=== PATIENT | male | born 1995 | race Caucasian/White ===

== ENCOUNTER 2019-06-19 13:47 | Emergency (ER) | payer OTHER ==
[~2019-06-19] VITALS: Ht 187.9 cm; Wt 80.2 kg
[2019-06-19] MEDS ORDERED: FAMOTIDINE 20MG/2ML IV (PEPCID) IVP ONE (14:00)
[2019-06-19] MEDS ORDERED: methylPREDNISolone 125 MG (Solu-MEDROL) VIAL IVP ONE (14:00)
[2019-06-19] MEDS ORDERED: diphenhydrAMINE 50 MG/ML INJ (BENADRYL) IVP ONE (14:00)
[2019-06-19] MEDS ORDERED: EPINEPHrine INJECTION 1 MG/ML AMP IM ONE (14:15)
--- NOTE | 2019-06-19 14:25 | ED Integumentary General ---
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 Source: patient Exam Limitations: no limitations History of Present Illness Date Seen by Provider: Jun 19, 2019 Time Seen by Provider: 13:55 Initial Comments 24-year-old male patient presents to the emergency department with complaints of hives and throat swelling beginning approximately 30 minutes to one hour prior to arrival. Patient states he was at work when symptoms began. he was outside on a piece of machinery when he noticed the throat itching and noticed a rash starting on the thighs. patient denies any new foods, lotions, soaps, laundry detergents, chemical exposures, medications, etc.... Patient denies any similar history of symptoms. 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.), getting worse Location: generalized Possible Cause: no cause identified Modifying Factors: worse with other (denies using otc meds) Associated Symptoms: No blisters, No change in skin texture, No edema, No fever, No flushing, No headache; hives; No jaundice; malaise; No nasal congestion, No numbness, No pallor, No paresthesia, No petechiae; rash, sore throat; No swelling/mass/lumps, No tingling Allergies and Home Medications Allergies Coded Allergies: No Known Drug Allergies (Unverified , 06/19/19) Home Medications Epinephrine 0.3 Mg/0.3 Ml Auto.injct, 0.3 MG IJ UD PRN for SHORTNESS OF BREATH Prescribed by: STEFFANIE ROSE on 06/19/191745 Famotidine 20 Mg Tablet, 20 MG PO BID Prescribed by: STEFFANIE ROSE on 06/19/191745 Fexofenadine HCl 180 Mg Tablet, 180 MG PO BID Prescribed by: STEFFANIE ROSE on 06/19/191745 Prednisone 20 Mg Tab, 40 MG PO DAILY Prescribed by: STEFFANIE ROSE on 06/19/191745 Patient Home Medication List Home Medication List Reviewed: Yes Review of Systems Review of Systems Constitutional: No chills, No diaphoresis, No dizziness, No fever, No malaise, No weakness EENTM: see HPI, throat pain, throat swelling; No ear discharge, No ear pain, No eye pain, No tearing, No mouth pain, No mouth swelling, No nose congestion Respiratory: No cough, No phlegm, No short of breath, No stridor, No wheezing Cardiovascular: No chest pain, No edema, No palpitations, No syncope Gastrointestinal: No abdominal pain, No constipation, No diarrhea, No nausea, No vomiting Genitourinary: no symptoms reported Musculoskeletal: no symptoms reported Skin: see HPI, rash Psychiatric/Neurological: Denies Headache, Denies Numbness, Denies Paresthesia, Denies Tingling, Denies Weakness Endocrine: No Symptoms Reported All Other Systems Reviewed Negative Unless Noted: Yes (Negative excepted noted.) Past [id number]-Evlnjh Hx Past Med/Social Hx: Reviewed and Corrections made Patient Social History Alcohol Use: Occasionally Uses Recreational Drug Use: No Smoking Status: Current Everyday Smoker Recent Foreign Travel: No Contact w/Someone Who Travel: No Recent Infectious Disease Expo: No Recent Hopitalizations: No Physical Abuse: No Sexual Abuse: No Mistreated: No Fear: No Past Medical History Surgeries: Yes Appendectomy Respiratory: No Cardiac: No Neurological: No Genitourinary: No Gastrointestinal: No Musculoskeletal: No Endocrine: Yes (raynaud's ) HEENT: No Cancer: No Psychosocial: No Family Medical History Reviewed and Corrections made No Pertinent Family Hx, Other Conditions/Hx (raynaud's syndrome) Physical Exam Vital Signs Vital Signs - First Documented 06/19/19 13:55 Temp 36.2 Pulse 91 Resp 18 B/P (MAP) 107/61 (76) Pulse Ox 100 O2 Delivery Room Air Capillary Refill : Less Than 3 Seconds General Appearance: WD/WN, no apparent distress HEENT: PERRL/EOMI, normal ENT inspection, TMs normal, pharyngeal erythema; No tonsillar exudate Neck: non-tender, full range of motion, supple, other (see skin exam) Cardiovascular: normal peripheral pulses, regular rate, rhythm, no edema, no gallop, no JVD, no murmur Respiratory: lungs clear, normal breath sounds, no respiratory distress, no accessory muscle use Gastrointestinal: normal bowel sounds, non tender, soft, no organomegaly; No di stended Back: other (see skin exam) Extremities: normal range of motion, non-tender, no pedal edema, no calf tenderness, normal capillary refill, other (see skin exam) 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, no motor/sensory deficits, alert, normal mood/affect, oriented x 3 Skin: warm/dry; No cyanosis, No diaphoresis, No ecchymosis, No jaundice, No mottled; rash (generalized erythematous rash with hives to the waist and bilat thighs) Skin Problem Location: generalized Skin Problem Character: rash, urticarial Progress/Results/Core Measures Results/Orders My Orders Orders - STEFFANIE ROSE Famotidine Injection (Pepcid Injection) (06/19/19 14:00) Methylprednisolone Sod Succ (Solu-Medrol (06/19/19 14:00) Diphenhydramine Injection (Benadryl Inje (06/19/19 14:00) Epinephrine 1 Mg Injection (Adrenalin I (06/19/19 14:15) Medications Given in ED Current Medications Medications Dose Ordered Sig/Roberta Route Start Time Stop Time Status Last Admin Dose Admin Diphenhydramine HCl 25 mg ONCE ONCE IVP 06/19/19 14:00 06/19/19 14:02 DC 06/19/19 14:07 25 MG Epinephrine HCl 0.3 mg ONCE ONCE IM 06/19/19 14:15 06/19/19 14:16 DC 06/19/19 14:09 0.3 MG Famotidine 40 mg ONCE ONCE IVP 06/19/19 14:00 06/19/19 14:02 DC 06/19/19 14:07 40 MG Methylprednisolone Sodium Succinate 125 mg ONCE ONCE IVP 06/19/19 14:00 06/19/19 14:02 DC 06/19/19 14:07 125 MG Vital Signs/I&O 06/19/19 06/19/19 13:55 18:19 Temp 36.2 Pulse 91 72 Resp 18 18 B/P (MAP) 107/61 (76) 140/89 Pulse Ox 100 100 O2 Delivery Room Air Room Air Blood Pressure Mean: 76 POS Departure Communication (Admissions) Patient seen and evaluated. Patient was given 40 mg of Pepcid IV, 25 mg Benadryl IV, 125 mg solu-medrol IV, and 0.3 mg of epinephrine IM. Throughout the visit the rash and hives slowly improved. patient reports throat symptoms have completely resolved. Patient observed for 4 hours without recurrent symptoms. plan for dsch to home with f/u as an outpatient with his PCP for recheck early next week. Patient instructed to return immediately to the emergency department for worsened symptoms or any other concerns. Impression Primary Impression: Urticaria of unknown origin Disposition: 01 HOME, SELF-CARE Condition: Improved Departure-Patient Inst. Decision time for Depature: 17:42 Referrals: NO,LOCAL PHYSICIAN (PCP) Primary Care Physician Patient Instructions: Hives (DC), Anaphylaxis (DC) Add. Discharge Instructions: All discharge instructions reviewed with patient and/or family. Voiced understanding. Medications as instructed. Benadryl [id number] as directed for breakthrough symptoms. Follow-up with your family practitioner for recheck as an outpatient within the next 5-7 days, call for appointment time tomorrow morning. Return immediately to the emergency department for worsened symptoms, difficulty swallowing, difficulty breathing, swelling of the tongue/lip/throat, vomiting, headache, or any other concerns. 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 STEFFANIE ROSE Jun 19, 2019 14:25 POS
[2019-06-19] MEDS ORDERED: FAMO-119 PO (17:46)
[2019-06-19] MEDS ORDERED: PRD20T PO (17:46)
[2019-06-19] MEDS ORDERED: FEXO180T84 PO (17:46)
[2019-06-19] MEDS ORDERED: EPIN0.3P3 IJ (17:46)
[2019-06-19 18:19] VITALS: BP 140/89
== END 2019-06-19 18:19 | disposition home or self-care (01) ==
LOC: ER 13:49
DX: L50.9 Urticaria, unspecified (principal); F17.200 Nicotine dependence, unspecified, uncomplicated; Z90.49 Acquired absence of other specified parts of digestive tract
CPT/HCPCS: 99284